=== PATIENT | male | born 1955 | race Caucasian/White ===

== ENCOUNTER 2020-12-13 19:04 | Inpatient (IN) | payer MEDICARE, MEDICAID ==
[~2020-12-13] VITALS: Ht 175.3 cm; Wt 63.6 kg
[~2020-12-13 19:04] MED LIST: BAYER CHEWABLE81 MG PO; CYCLOBENZAPRINE10 MG PO; ELAVIL25 MG PO; FENOGLIDE120 MG PO; HUMALOG MIX 75/23 ML SC; LANTUS SOL100 UNIT/1 SC; LIPITOR40 MG PO; NORVASC10 MG PO; PERCOCET 10/3251 TA1 PO; PRINIVIL20 MG PO; [UNRECOGNIZED DRUG - OTHER] PO
[2020-12-13 19:56] LABS: BASOPHILS 1.1 % (0-2); EOSINOPHILS 1.9 % (0-7); HEMATOCRIT 51.4 % (42.0-54.0); HEMOGLOBIN 17.5 g/dL (13.5-17.5); LYMPHOCYTES 31.2 % (15-50); MCH 28.3 pg (26.0-34.0); MCHC 34.1 g/dL (31.0-37.0); MEAN PLATELET VOLUME 7.6 fL (7.4-10.4); MONOCYTES 12.1 % (2-11); NEUTROPHILS 53.7 % (40-80); PLATELET COUNT 235 10x3/uL (130-400); RDW 14.8 % (11.5-14.5); WBC 5.9 10x3/uL (4.8-10.8)
[2020-12-13 20:00] VITALS: BP 131/84
[2020-12-13 20:02] LABS: APTT 30.1 SECONDS (22.8-39.4); INR 1.02 (0.85-1.17); PROTIME 12.4 SECONDS (11.6-15.0)
[2020-12-13 20:28] LABS: BILIRUBIN NEGATIVE (NEGATIVE); KETONE NEGATIVE mg/dL (< 1+); NITRITE NEGATIVE (NEGATIVE); UROBILINOGEN NORMAL mg/dL (< 2); WHITE CELLS - URINE 1 HPF (0-1)
[2020-12-13 20:30] LABS: UDS - AMPHET NEGATIVE QUAL (NEGATIVE); UDS - BARB NEGATIVE QUAL (NEGATIVE); UDS - BENZO NEGATIVE QUAL (NEGATIVE); UDS - COCAINE NEGATIVE QUAL (NEGATIVE); UDS - OPIATE NEGATIVE QUAL (NEGATIVE); UDS - PCP NEGATIVE QUAL (NEGATIVE); UDS - THC NEGATIVE QUAL (NEGATIVE)
[2020-12-13 21:00] LABS: ALBUMIN 2.9 g/dL (3.4-5.0); ALKALINE PHOSPHATASE 151 U/L (30-120); ALT (SGPT) 22 U/L (10-68); BILIRUBIN - TOTAL 0.66 mg/dL (0.2-1.3); CALCIUM 8.7 mg/dL (8.5-10.1); CARBON DIOXIDE 24.3 mmol/L (21.0-32.0); CHLORIDE - SERUM 88 mmol/L (98-107); CREATINE KINASE 36 UL (21-232); CREATININE - SERUM 1.1 mg/dL (0.6-1.3); LIPASE 276 U/L (73-393); MAGNESIUM - SERUM 1.8 mg/dL (1.8-2.4); POTASSIUM - SERUM 4.3 mmol/L (3.5-5.1); PRO BNP 1222 pg/mL (0-125); PROTEIN - SERUM 6.9 g/dL (6.4-8.2); SODIUM 122 mmol/L (136-145); THYROID STIMULATING HORMONE 2.38 uIU/mL (0.36-3.74); TROPONIN-I < 0.017 ng/mL (0.000-0.060); UREA NITROGEN 18 mg/dL (7-18); eGFR NON AFRICAN AMERICAN 71 mL/min (90-120)
[2020-12-13 21:04] LABS: CALC OSMOLALITY 276 mosm/kg (275-300); GLUCOSE 625 mg/dL (74-106)
[2020-12-13 21:38] VITALS: BP 163/90
[2020-12-13 22:30] VITALS: BP 130/80
[2020-12-14] MEDS ORDERED: ROPINIROLE HCL2 MG PO (02:18)
[2020-12-14] MEDS ORDERED: DEPAKOTE500 MG PO (02:21)
[2020-12-14] MEDS ORDERED: BAYER CHEWABLE81 MG PO (02:22)
[2020-12-14] MEDS ORDERED: LANTUS INS100 UNITS/ SC (02:23)
[2020-12-14] MEDS ORDERED: NOVOLOG100 UNIT/1 SC (02:23)
[2020-12-14] MEDS ORDERED: OMEPRAZOLE20 M1 PO (02:24)
[2020-12-14] MEDS ORDERED: LIPITOR40 MG PO (02:24)
[2020-12-14] MEDS ORDERED: METOPROLOL TART25 MG PO (02:25)
[2020-12-14] MEDS ORDERED: CYMBALTA60 MG PO (02:25)
[2020-12-14 02:33] VITALS: Ht 175.3 cm; Wt 63.6 kg
[2020-12-14 05:34] LABS: BASOPHILS 1.2 % (0-2); EOSINOPHILS 2.7 % (0-7); HEMATOCRIT 46.6 % (42.0-54.0); HEMOGLOBIN 16.3 g/dL (13.5-17.5); LYMPHOCYTES 39.3 % (15-50); MCH 28.5 pg (26.0-34.0); MCV 81.4 fL (80.0-100.0); MEAN PLATELET VOLUME 7.5 fL (7.4-10.4); MONOCYTES 9.9 % (2-11); NEUTROPHILS 46.9 % (40-80); PLATELET COUNT 193 10x3/uL (130-400); RBC 5.72 10x6/uL (4.20-6.10); RDW 14.8 % (11.5-14.5); WBC 5.6 10x3/uL (4.8-10.8)
[2020-12-14 05:56] LABS: ALBUMIN 2.5 g/dL (3.4-5.0); ALKALINE PHOSPHATASE 125 U/L (30-120); ALT (SGPT) 22 U/L (10-68); BILIRUBIN - TOTAL 0.47 mg/dL (0.2-1.3); CALCIUM 8.1 mg/dL (8.5-10.1); CARBON DIOXIDE 25.1 mmol/L (21.0-32.0); CHLORIDE - SERUM 98 mmol/L (98-107); MAGNESIUM - SERUM 1.8 mg/dL (1.8-2.4); PHOSPHOROUS 3.9 mg/dL (2.5-4.9); PROTEIN - SERUM 6.1 g/dL (6.4-8.2); SODIUM 131 mmol/L (136-145); UREA NITROGEN 15 mg/dL (7-18)
[2020-12-14 05:59] LABS: CALC OSMOLALITY 278 mosm/kg (275-300); CREATININE - SERUM 0.8 mg/dL (0.6-1.3); GLUCOSE 373 mg/dL (74-106); POTASSIUM - SERUM 3.6 mmol/L (3.5-5.1); eGFR NON AFRICAN AMERICAN > 90 mL/min (90-120)
--- NOTE | 2020-12-14 07:25 | NUR ---
PATIENT ON CL STATES HE WAS SUPPOSE TO HAVE PAIN MEDICATION AN HOUR AGO AND HE IS LEAVING AT 9 NO MATTER WHAT. NO OTHER NEEDS AT THIS TIME. CONTINUE WITH PLAN OF CARE
[2020-12-14 08:00] VITALS: BP 126/80
--- NOTE | 2020-12-14 09:38 | NUR ---
REHAB PRESCREENING Rehab referral received and chart reveiwed. This patient has [employer] as his insurance provider. OT evaluation would need to be ordered. Rehab will continue to follow this patient for admission criteria and will submit for authorization if he meets. Thank you for this referral! Celia Arroyo, MIXING MACHINE [employer]ER [facility]
--- NOTE | 2020-12-14 10:18 | NUR ---
PATIENT WANTS TO LEAVE AMA. PRINTED PAPERWORK AND HAD PATIENT SIGN, PHYSICIAN NOTIFIED
== END 2020-12-14 12:44 | disposition home or self-care (01) | DRG 638 ==
LOC: D.ER 19:04 → D.MS 22:12 → D.EDHOLD 22:12 → D.MS 23:17
PROVIDERS: Family Medicine; ADMIT Family Medicine; ATTEND Family Medicine
DX: E11.65 Type 2 diabetes mellitus with hyperglycemia (principal); E87.1 Hypo-osmolality and hyponatremia; I11.0 Hypertensive heart disease with heart failure; I50.9 Heart failure, unspecified; E78.5 Hyperlipidemia, unspecified; I25.10 Atherosclerotic heart disease of native coronary artery without angina pectoris; G89.29 Other chronic pain; Z95.1 Presence of aortocoronary bypass graft; Z87.820 Personal history of traumatic brain injury; B18.2 Chronic viral hepatitis C